=== PATIENT | female | born 1955 | race Caucasian/White ===

== ENCOUNTER 2017-12-10 16:18 | Emergency (ER) | payer OTHER ==
[~2017-12-10] VITALS: Ht 162.6 cm; Wt 86.2 kg
[~2017-12-10 16:18] MED LIST: FERROUS SULFAT325 MG; LOSARTAN-HCTZ1 EAC1; PEXEVA40 MG; RESTORIL30 MG; ZOCOR20 MG; ZYPREXA10 MG
== END 2017-12-10 21:38 | disposition home or self-care (01) ==
LOC: ER 16:18
DX: G44.209 Tension-type headache, unspecified, not intractable (principal); E86.9 Volume depletion, unspecified

== ENCOUNTER 2018-05-28 18:17 | Emergency (ER) | payer OTHER ==
[~2018-05-28] VITALS: Ht 162.6 cm; Wt 79.4 kg
== END 2018-05-28 19:59 | disposition home or self-care (01) ==
LOC: ER 18:17
DX: E11.40 Type 2 diabetes mellitus with diabetic neuropathy, unspecified (principal); M79.672 Pain in left foot; M79.671 Pain in right foot

== ENCOUNTER → 2020-03-02 | Emergency (ER) | payer OTHER ==
[~2020-03-02] VITALS: Ht 162.6 cm; Wt 79.4 kg
[~2020-03-02] MED LIST changes: +FORTAMET500 MG
== END | disposition left against medical advice (07) ==
LOC: ER 17:33
DX: F32.89 Other specified depressive episodes (principal); F06.4 Anxiety disorder due to known physiological condition

== ENCOUNTER 2020-07-04 02:28 | Emergency (ER) | payer OTHER ==
[~2020-07-04] VITALS: Ht 162.6 cm; Wt 66.7 kg
== END 2020-07-04 14:47 | disposition home or self-care (01) ==
LOC: ER 02:28
DX: E83.52 Hypercalcemia (principal); R53.81 Other malaise; Z60.2 Problems related to living alone